=== PATIENT | female | born 1955 | race Caucasian/White ===

== ENCOUNTER 2016-08-28 14:37 | Outpatient (CLI) | payer MEDICARE ==
[2016-08-28 15:43] LABS: Chloride 98 mmol/L (98-107)
[2016-08-28 16:03] LABS: ALT (SGPT) 7 U/L (0-55); AST (SGOT) 7 U/L (5-34); Alkaline Phosphatase 61 U/L (40-150); BUN (Urea Nitrogen) 39 mg/dL (9.8-20.1); Bilirubin, Total 0.3 mg/dL (0.2-1.2); Calc. Creatinine Clearance 0 mL/min (70-130); Calcium 8.6 mg/dL (7.8-10.44); Carbon Dioxide 30 mmol/L (23-31); Estimated GFR-MDRD 13; Globulin 3.5 g/dL (2.4-3.5); Protein, Total 5.2 g/dL (5.8-8.1)
[2016-08-28 16:07] LABS: Anion Gap 15 mmol/L (10-20)
[2016-08-28 17:08] LABS: Hematocrit 19.9 % (36.0-47.0); Red Blood Cell (RBC) Count 2.16 mill/uL (4.20-5.40)
[2016-08-28 17:10] LABS: White Blood Cell (WBC) Count Less than 0.5 thou/uL (4.8-10.8)
== END 2016-08-28 14:38 | disposition home or self-care (01) ==
LOC: NAV LABSP 14:37
PROVIDERS: ATTEND Internal Medicine Infectious Disease
DX: T85.71XA Infection and inflammatory reaction due to peritoneal dialysis catheter, initial encounter (principal); C90.00 Multiple myeloma not having achieved remission; N18.6 End stage renal disease; Z79.2 Long term (current) use of antibiotics
CPT/HCPCS: 80053; 85025; 86140